=== PATIENT | female | born 1940 | race Caucasian/White ===

== ENCOUNTER → 2023-12-27 | Day surgery (SDC) | payer MEDICARE ==
[2023-12-26 14:39] LABS: BASOPHILS # (AUTO) 0.1 (0.0-0.1); BASOPHILS % 0.7 % (0.0-1.0); EOSINOPHILS # (AUTO) 0.3 (0.0-0.4); EOSINOPHILS % 3.1 % (0.0-6.0); HEMATOCRIT 46.6 % (34.2-44.1); HEMOGLOBIN 14.6 g/dL (12.0-16.0); LYMPHOCYTES % 20.1 % (18.0-39.1); MEAN CORPUSCULAR HEMOGLOBIN 29.3 pg (28-32); MEAN CORPUSCULAR HGB CONC 31.3 g/dL (31-35); MEAN CORPUSCULAR VOLUME 93.6 fL (81-99); MONOCYTES # (AUTO) 0.8 (0.2-0.8); MONOCYTES % 7.7 % (4.4-11.3); NEUTROPHILS # (AUTO) 6.8 (2.1-6.9); NEUTROPHILS % 67.2 % (38.7-80.0); PLATELET COUNT 148 x10e3/uL (140-360); RED BLOOD COUNT 4.98 x10e6/uL (3.6-5.1); WHITE BLOOD COUNT 10.04 x10e3/uL (4.8-10.8)
[2023-12-26 15:09] LABS: ANION GAP 13.8 mmol/L (8-16); CALCIUM 9.9 mg/dL (8.4-10.2); CREATININE, SERUM 1.61 mg/dL (0.57-1.11); POTASSIUM 4.8 mmol/L (3.5-5.1)
[~2023-12-27] MED LIST: ASPIRIN81 MG PO; B12 ACTIVE1000 MCG; BIOTECT PLUS L473 ML; BOTULINUM TOXIN TYPE A 100 UNIT VIAL IM ONE; BYSTOLIC10 MG PO; CLONIDINE HCL0.3 MG PO; CRESTOR40 MG; DIGOXIN125 MCG PO; FENTANYL CITRATE/PF 100MCG/2 ML INJ ONE; IOPAMIDOL 610MG/1ML 300 MG/ML VIAL IV ONE; JANUVIA50 MG PO; LIDOCAINE HCL 2% LOCAL INJ 5 ML SDV VIAL INJ ONE; LISINOPRIL10 MG PO; NIFEDIPINE10 MG PO; ONDANSETRON HCL INJ 2MG/ML 2ML 2 MG/ML VIAL ONE; PAXIL10 MG PO; PROPOFOL IV EMULSION 10 MG/ML 20 ML VIAL ONE; SEVOFLURANE INHAL SOLN 250 ML PEN BTL ONE; VITAMIN D; XARELTO10 MG PO; [UNRECOGNIZED DRUG - OTHER]
[2023-12-27] MEDS: GENTAMICIN 80MG/NS 100 ML 200 ML IV ONE (08:26)
[2023-12-27] MEDS: LACTATED RINGER'S 1,000 ML ONE (08:26)
[2023-12-27] MEDS: Ampicillin INJ 1 GM Vial ONE (08:48)
[2023-12-27] MEDS: HYDRALAZINE HCL 20 MG/ML VIAL ONE (12:52)
[2023-12-27] MEDS: PHENAZOPYRIDINE HCL 100 MG TAB ONE (13:09)
[2023-12-27 13:20] VITALS: TEMP 97.9
[2023-12-27 13:35] VITALS: BP 170/89; PULSE 58; RESP 16; O2SAT 98
== END | disposition home or self-care (01) ==
LOC: OR 07:08
PROVIDERS: ATTEND Urology
DX: N39.41 Urge incontinence (principal); N39.0 Urinary tract infection, site not specified; N32.81 Overactive bladder; N81.6 Rectocele; N95.2 Postmenopausal atrophic vaginitis; N32.89 Other specified disorders of bladder; G47.33 Obstructive sleep apnea (adult) (pediatric); I10 Essential (primary) hypertension; I48.91 Unspecified atrial fibrillation; E78.5 Hyperlipidemia, unspecified; J44.9 Chronic obstructive pulmonary disease, unspecified; E11.9 Type 2 diabetes mellitus without complications; N28.9 Disorder of kidney and ureter, unspecified; Z01.810 Encounter for preprocedural cardiovascular examination; Z01.812 Encounter for preprocedural laboratory examination; Z01.818 Encounter for other preprocedural examination; Z79.02 Long term (current) use of antithrombotics/antiplatelets; Z79.82 Long term (current) use of aspirin; Z79.899 Other long term (current) drug therapy; Z95.0 Presence of cardiac pacemaker
CPT/HCPCS: 36415; 52005; 52287; 71046; 74420; 80048; 85025; 87086; 93005; C1758; J0360; J0587; J1580; J2001; J2405; J2704; J3010; J7121; Q9967